=== PATIENT | female | born 1935 | race Caucasian/White ===

== ENCOUNTER 2018-07-21 01:29 | Inpatient (IN) | payer MEDICARE, MEDICAID ==
[2018-07-21] MEDS ORDERED: HYDROcodone/Acetaminophen 5/325 mg Tablet PO PRN (13:03)
[2018-07-21 13:10] VITALS: BMI 40.4
[2018-07-21] MEDS ORDERED: Cefepime 1 GM in Sodium Chloride 0.9% 100 ML IVPB SCH (14:00)
--- NOTE | 2018-07-21 15:55 | HP ---
CHIEF COMPLAINT: Sepsis, urinary tract infection. HISTORY OF PRESENT ILLNESS: The patient gives history of shaking with chills from last 2 days. She also developed fever. She thinks it is bladder infection. Had a temperature of 101.6 with blood pre ssures of 100/56 on arrival at [facility]. Her last bowel movement was 2 days back. Her last u rinary tract infection per patient was long back. She normally ambulates in a wheelchair and is a [facility] resident. No complaints of chest pain, palpitation, PND, or orthopnea. PAST MEDICAL/SURGICAL HISTORY: History of hypertension, COPD, osteoarthritis, muscle wasting with at rophy, obesity, chronic kidney disease stage 2, urinary incontinence, GERD, benign positional vertigo , cervical disk disease, dementia, carpal tunnel surgery on the right wrist, prior history of Staph i nfection in the abdomen, hysterectomy with dehiscence, appendectomy, left great toe and second toe bu nionectomy. CURRENT MEDICATIONS: The patient is on albuterol inhaler q.6 hourly p.r.n., MiraLax 17 grams daily, tizanidine 4 mg p.o. twice daily p.r.n., Norvasc 5 mg daily, clonazepam 0.5 mg p.o. twice daily, furo semide 40 mg twice daily, gabapentin 200 mg p.o. twice daily, [place] p.r.n. for pain, lisinopril 20 mg p.o. twice daily, metoprolol 50 mg p.o. twice daily, Protonix 40 mg p.o. daily, K-Dur 10 mEq p.o. tw ice daily, Zoloft 150 mg p.o. daily. ALLERGIES: No known drug allergies. PERSONAL HISTORY: Does not abuse alcohol or drugs. No history of smoking. FAMILY HISTORY: Father at the age of 73 years from old age and mother at the age of 42 yea rs and has had massive CVA. CODE STATUS: DNR. This was confirmed with the patient. She has also out of hospital DNR, but she h as signed on February 17, 2018. REVIEW OF SYSTEMS: The following complete review of systems was negative, unless otherwise mentioned in the HPI or below: Constitutional: Weight loss or gain, ability to conduct usual activities. Skin: Rash, itching. Eyes: Double vision, pain. ENT/Mouth: Nose bleeding, neck stiffness, pain, tenderness. Cardiovascular: Palpitations, dyspnea on exertion, orthopnea. Respiratory: Shortness of breath, wheezing, cough, hemoptysis, fever or night sweats. Gastrointestinal: Poor appetite, abdominal pain, heartburn, nausea, vomiting, constipation, or diarr hea. Genitourinary: Urgency, frequency, dysuria, nocturia. Musculoskeletal: Pain, swelling. Neurologic/Psychiatric: Anxiety, depression. Allergy/Immunologic: Skin rash, bleeding tendency. PHYSICAL EXAMINATION: GENERAL: The patient is an 83-year-old female who is currently not in any acute distress. VITAL SIGNS: Blood pressure 100/56, pulse 84 per minute, respiratory rate 18 per minute, temperature was 101.6 degrees at [facility] and is currently 99.9 degrees Fahrenheit, saturating 98% on 2 l iters nasal cannula. NECK: Supple, no elevated JVD. HEENT: Extraocular muscles intact. Pupils reacting to light. Oral cavity, mucous membranes are dry . No exudates or congestion. CARDIOVASCULAR: S1, S2 heard. Regular rhythm. RESPIRATORY: Air entry 1+ bilateral. No rales or rhonchi. ABDOMEN: Soft, bowel sounds heard. No tenderness, rigidity or guarding. EXTREMITIES: No peripheral edema or calf tenderness. VASCULAR SYSTEM: Peripheral pulses 1+ bilateral. No ischemic ulcerations or gangrene. CENTRAL NERVOUS SYSTEM: No gross focal deficits noted. Patient is alert, awake, oriented well. PSYCHIATRIC: The patient's mood is euthymic. No hallucinations or delusions. LABORATORY AND X-RAY FINDINGS: Chest x-ray done shows mild cardiomegaly with pulmonary vascular rayshawn estion, otherwise no acute infiltrate. Urinalysis is positive for nitrite, moderate leukocyte estera se, greater than 50 wbc's and 4+ bacteria. Serum bicarbonate is 26, BUN 21, creatinine 1.0, serum gl ucose 130. Troponin I 0.07. Lipase is 14. White count of 17, H&H 13 and 41, platelet count 232 wit h 82% neutrophils. CLINICAL IMPRESSION AND PLAN: Patient will be admitted to medical floor for sepsis with urinary trac t infection. She will be placed on cefepime and Levaquin. Gentle hydration with normal saline at 50 mL per hour. We will continue her Klonopin, Norvasc, [place], Protonix, MiraLax, and Zoloft as before . She will be on a small dose of Lopressor 25 mg twice daily. Blood and urine cultures have been ob tained and we will follow up on that. The patient likely has indeterminate troponin due to demand is chemia from sepsis and is currently asymptomatic.
[2018-07-21 17:19] LABS: Troponin I 0.037 ng/mL (< 0.028)
[2018-07-21 17:20] LABS: Troponin I 0.089 ng/mL (< 0.028)
[2018-07-21] MEDS: Sodium Chloride 0.9% 1,000 ML IV SCH ×2 (17:46→20:56)
[2018-07-21] MEDS: Cefepime 1 GM in Sodium Chloride 0.9% 100 ML IVPB SCH (20:53)
[2018-07-21] MEDS: Docusate 100 MG CAP PO SCH (20:54)
[2018-07-21] MEDS: clonazePAM 0.5 MG TAB PO SCH (20:54)
[2018-07-21] MEDS: Gabapentin 100 MG CAP PO SCH (20:55)
[2018-07-21] MEDS: Metoprolol Tartrate 25 MG TAB PO SCH (20:55)
[2018-07-21] MEDS: HYDROcodone/Acetaminophen 5/325 mg Tablet PO PRN (23:05)
[2018-07-22] MEDS: Cefepime 1 GM in Sodium Chloride 0.9% 100 ML IVPB SCH ×2 (08:31→21:01)
[2018-07-22] MEDS: Docusate 100 MG CAP PO SCH ×2 (08:33→21:02)
[2018-07-22] MEDS: Polyethylene Glycol 3350 17 GM Packet PO SCH (08:33)
[2018-07-22] MEDS: Gabapentin 100 MG CAP PO SCH ×2 (08:34→21:02)
[2018-07-22] MEDS: Metoprolol Tartrate 25 MG TAB PO SCH ×2 (08:34→21:03)
[2018-07-22] MEDS: clonazePAM 0.5 MG TAB PO SCH ×2 (08:34→21:02)
[2018-07-22] MEDS: Amlodipine 5 MG TAB PO SCH (08:35)
[2018-07-22 09:15] LABS: #Basophils 0.1 thou/uL (0.0-0.2); #Eosinphils 0.1 thou/uL (0.0-0.7); #Monocytes 0.4 thou/uL (0.11-0.59); #Neutrophils 10.1 thou/uL (1.40-6.50); %Basophils 0.6 % (0.0-1.0); %Eosinophils 0.5 % (0.0-10.0); %Lymphocytes 8.6 % (21.0-51.0); %Neutrophils 87.3 % (42.0-75.0); Hemoglobin 12.7 g/dL (12.0-16.0); Mean Corpuscular HGB CONC 31.5 g/dL (32.0-36.0); Mean Corpuscular Hemoglobin 30.2 pg (27.0-31.0); Mean Corpuscular Volume 95.9 fL (78.0-98.0); Mean Platelet Volume 7.3 fL (7.4-10.4); Platelet Count 200 thou/uL (130-400); RBC Distribution Width 12.9 % (11.5-14.5); White Blood Cell (WBC) Count 11.6 thou/uL (4.8-10.8)
[2018-07-22 09:40] LABS: Anion Gap 9 mmol/L (10-20); BUN (Urea Nitrogen) 11 mg/dL (9.8-20.1); Calc. Creatinine Clearance 110 mL/min (70-130); Calcium 8.7 mg/dL (7.8-10.44); Carbon Dioxide 31 mmol/L (23-31); Chloride 102 mmol/L (98-107); Estimated GFR-MDRD 78; Glucose 136 mg/dL (83-110); Potassium 3.9 mmol/L (3.5-5.1); Sodium 138 mmol/L (136-145)
--- NOTE | 2018-07-22 11:49 | PDOC.PN ---
- Subjective Encounter Start Date: 07/22/18 Encounter Start Time: 11:48 Says she is feeling better overall. No complaints right now. - Objective Resuscitation Status: Resuscitation Status DNR:Do Not Resuscitate Vital Signs & Weight: Vital Signs (12 hours) Temp Pulse Resp BP BP Pulse Ox 07/22/18 08:35 83 146/83 H 07/22/18 07:59 97 07/22/18 07:58 98.3 F 83 18 146/83 H 97 Weight Weight 266 lb I&O: 07/21/18 07/22/18 07/23/18 06:59 06:59 06:59 Intake Total 867 Output Total 1750 Balance -883 Result Diagrams: 07/22/18 09:03 07/22/18 09:03 Phys Exam - Physical Examination Constitutional: NAD Obese. Awake and alert. Respiratory: no wheezing, no rales, no rhonchi, clear to auscultation bilateral Cardiovascular: RRR, no significant murmur, no rub Gastrointestinal: soft, non-tender, no distention, positive bowel sounds Musculoskeletal: no edema Psychiatric: normal affect, A&O x 3 Dx/Plan (1) Sepsis Code(s): A41.9 - SEPSIS, UNSPECIFIED ORGANISM Status: Acute (2) UTI (urinary tract infection) Status: Acute (3) Asthma Code(s): J45.909 - UNSPECIFIED ASTHMA, UNCOMPLICATED Status: Chronic (4) Hypertension Code(s): I10 - ESSENTIAL (PRIMARY) HYPERTENSION Status: Chronic (5) Obesity (BMI 30-39.9) Code(s): E66.9 - OBESITY, UNSPECIFIED Status: Chronic - Plan * Urine cx is negative. Had fair amount of RBC's. Will recheck. * Continue with IV abx and follow up culture tomorrow. * Leukocytosis and fever resolved. * Continue home meds for chronic conditions which appear to be well controlled.
[2018-07-22] MEDS ORDERED: Enoxaparin Sodium 30 MG/0.3 ML SYRINGE SC SCH (12:00)
[2018-07-22 14:56] LABS: Bilirubin Negative (Negative); Blood, Urine Small (Negative); Clarity CLEAR (Clear); Glucose, Urine (Dipstick) Negative (Negative); Leukocyte Small (Negative); Nitrite Negative (Negative); Protein, Urine (Dipstick) Trace mg/dL (Neg-Trace); Specific Gravity, Urine 1.009 (1.002-1.036); pH, Urine 7.5 (5.0-9.0)
[2018-07-22 14:59] LABS: Bacteria/HPF None Seen HPF (None Seen); Hyaline Casts/LPF 0-3 HYALINE CAST LPF (0-3 Hyaline); Pathc Cast-AUWi Flag 0.87 (0-2.49)
[2018-07-22] MEDS: HYDROcodone/Acetaminophen 5/325 mg Tablet PO PRN (15:48)
[2018-07-22] MEDS: Sodium Chloride 0.9% 1,000 ML IV SCH (21:00)
[2018-07-23 05:40] LABS: #Eosinphils 0.1 thou/uL (0.0-0.7); #Lymphocytes 1.5 thou/uL (1.20-3.40); #Monocytes 0.6 thou/uL (0.11-0.59); #Neutrophils 5.3 thou/uL (1.40-6.50); %Basophils 0.2 % (0.0-1.0); %Eosinophils 1.5 % (0.0-10.0); %Lymphocytes 19.7 % (21.0-51.0); %Monocytes 7.9 % (0.0-10.0); %Neutrophils 70.7 % (42.0-75.0); Hemoglobin 12.8 g/dL (12.0-16.0); Mean Corpuscular HGB CONC 31.6 g/dL (32.0-36.0); Mean Corpuscular Hemoglobin 30.1 pg (27.0-31.0); Mean Corpuscular Volume 95.1 fL (78.0-98.0); Mean Platelet Volume 7.5 fL (7.4-10.4); Platelet Count 195 thou/uL (130-400); RBC Distribution Width 12.9 % (11.5-14.5); Red Blood Cell (RBC) Count 4.24 mill/uL (4.20-5.40); White Blood Cell (WBC) Count 7.5 thou/uL (4.8-10.8)
[2018-07-23 06:00] LABS: Anion Gap 7 mmol/L (10-20); BUN (Urea Nitrogen) 9 mg/dL (9.8-20.1); Calc. Creatinine Clearance 124 mL/min (70-130); Calcium 8.7 mg/dL (7.8-10.44); Carbon Dioxide 31 mmol/L (23-31); Chloride 104 mmol/L (98-107); Estimated GFR-MDRD 90; Glucose 95 mg/dL (83-110); Potassium 4.2 mmol/L (3.5-5.1); Sodium 138 mmol/L (136-145)
[2018-07-23] MEDS: Cefepime 1 GM in Sodium Chloride 0.9% 100 ML IVPB SCH ×2 (08:29→21:15)
[2018-07-23] MEDS: Gabapentin 100 MG CAP PO SCH ×2 (08:32→21:18)
[2018-07-23] MEDS: clonazePAM 0.5 MG TAB PO SCH ×2 (08:32→21:17)
[2018-07-23] MEDS: Docusate 100 MG CAP PO SCH ×2 (08:32→21:17)
[2018-07-23] MEDS: Amlodipine 5 MG TAB PO SCH (08:32)
[2018-07-23] MEDS: Metoprolol Tartrate 25 MG TAB PO SCH ×2 (08:32→21:18)
[2018-07-23] MEDS: Polyethylene Glycol 3350 17 GM Packet PO SCH (08:33)
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
[2018-07-23] MEDS: HYDROcodone/Acetaminophen 5/325 mg Tablet PO PRN (21:18)
[2018-07-23] MEDS: Sodium Chloride 0.9% 1,000 ML IV SCH (23:34)
[2018-07-24] MEDS: Cefepime 1 GM in Sodium Chloride 0.9% 100 ML IVPB SCH (08:51)
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
[2018-07-24] MEDS: Polyethylene Glycol 3350 17 GM Packet PO SCH (08:53)
[2018-07-24] MEDS: Docusate 100 MG CAP PO SCH (08:53)
[2018-07-24] MEDS: clonazePAM 0.5 MG TAB PO SCH (08:53)
[2018-07-24] MEDS: Gabapentin 100 MG CAP PO SCH (08:53)
[2018-07-24] MEDS: Metoprolol Tartrate 25 MG TAB PO SCH (08:55)
[2018-07-24] MEDS: Amlodipine 5 MG TAB PO SCH (08:55)
[2018-07-24 11:37] VITALS: BP 161/78; TEMP 98.6
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
== END 2018-07-24 12:28 | DRG 872 ==
LOC: ERS 01:29 → T4-B 11:23 → 2SE 11:51 → T4-B 17:39
PROVIDERS: ADMIT Hospitalist; ATTEND Hospitalist
DX: A41.9 Sepsis, unspecified organism (principal); N39.0 Urinary tract infection, site not specified; I24.8 Other forms of acute ischemic heart disease; N18.2 Chronic kidney disease, stage 2 (mild); I12.9 Hypertensive chronic kidney disease with stage 1 through stage 4 chronic kidney disease, or unspecified chronic kidney disease; J44.9 Chronic obstructive pulmonary disease, unspecified; E66.9 Obesity, unspecified; M19.90 Unspecified osteoarthritis, unspecified site; M62.50 Muscle wasting and atrophy, not elsewhere classified, unspecified site; R32 Unspecified urinary incontinence; F03.90 Unspecified dementia, unspecified severity, without behavioral disturbance, psychotic disturbance, mood disturbance, and anxiety; Z79.899 Other long term (current) drug therapy; Z79.891 Long term (current) use of opiate analgesic; B00.1 Herpesviral vesicular dermatitis; J45.909 Unspecified asthma, uncomplicated; Z68.30 Body mass index [BMI] 30.0-30.9, adult; K21.9 Gastro-esophageal reflux disease without esophagitis
CPT/HCPCS: 36415; 80048; 81003; 81015; 84484; 85025; 87040; 87086; J0692; J1650; J1956; J7050

== ENCOUNTER 2019-10-20 07:03 | Inpatient (IN) | payer MEDICARE, MEDICAID ==
[2019-10-20 08:26] LABS: Bacteria/HPF 3+ HPF (None Seen); Bilirubin Negative (Negative); Blood, Urine Trace (Negative); Clarity Extra Turbid (Clear); Glucose, Urine (Dipstick) Normal (Negative); Leukocyte 25 Leu/uL (Negative); Nitrite Negative (Negative); Protein, Urine (Dipstick) 30 mg/dL (Neg-Trace); RBC/HPF 0-3 HPF (0-3); Squamous Epithelial None Seen HPF (0-3); Urobilinogen Normal mg/dL (Less than 2); WBC/HPF 0-3 HPF (0-3)
[2019-10-20] MEDS ORDERED: Morphine 2 MG/ML SYRINGE ONE ×2 (08:37→09:41)
[2019-10-20] MEDS ORDERED: Dextrose 5% in Water 1,000 ML IV PRN (09:40)
[2019-10-20] MEDS ORDERED: Morphine 4 MG/ML VIAL SLOW IVP PRN ×2 (09:40→19:51)
[2019-10-20] MEDS ORDERED: Dextrose 50% Abboject 50 ML SYRINGE SLOW IVP PRN (09:40)
[2019-10-20] MEDS ORDERED: HumaLOG 300 UNITS/3 ML VIAL SC PRN (09:40)
[2019-10-20] MEDS ORDERED: Ondansetron PF 4 MG/2 ML Vial IVP PRN ×2 (09:40→19:51)
[2019-10-20] MEDS ORDERED: hydrALAZINE 20 MG/ML VIAL SLOW IVP PRN ×2 (09:40)
[2019-10-20] MEDS ORDERED: Ketorolac Tromethamine 30 MG/ML VIAL ONE (09:41)
[2019-10-20] MEDS ORDERED: Gabapentin 300 MG CAP PO PRN (09:42)
[2019-10-20] MEDS ORDERED: traMADol HCl 50 MG TAB PO PRN (09:42)
[2019-10-20] MEDS ORDERED: Ketorolac Tromethamine 30 MG/ML VIAL IVP PRN (09:44)
[2019-10-20] MEDS ORDERED: Rocuronium Bromide 10 MG/ML (10ML VIAL) ONE (11:57)
[2019-10-20] MEDS ORDERED: PROPOFOL 200 MG/20 ML VIAL ONE (11:57)
[2019-10-20] MEDS ORDERED: Glycopyrrolate 0.2 MG/ML 5 ML SYRINGE ONE (11:57)
[2019-10-20] MEDS ORDERED: Dexamethasone 20 MG/5 ML VIAL ONE (11:57)
[2019-10-20] MEDS ORDERED: Metoclopramide HCl 10 MG/2 ML VIAL ONE (11:57)
[2019-10-20] MEDS ORDERED: Ondansetron PF 4 MG/2 ML Vial ONE (11:57)
[2019-10-20] MEDS ORDERED: ePHEDrine/0.9% NaCl/PF SYRINGE 50 mg/10 ml ONE (11:57)
[2019-10-20] MEDS ORDERED: Lidocaine 1% PF 5 ML VIAL ONE (11:57)
[2019-10-20] MEDS: Sodium Chloride 0.9% 1,000 ML IV SCH ×2 (11:58→21:15)
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
[2019-10-20] MEDS: Acetaminophen 500 MG TAB PO SCH ×3 (13:11→21:14)
[2019-10-20 14:02] VITALS: BMI 40.6
[2019-10-20] MEDS ORDERED: Fentanyl 100 MCG/2 ML VIAL ONE (17:24)
[2019-10-20] MEDS ORDERED: Neomycin-Polymyxin 1 ML AMP ONE (18:09)
[2019-10-20] MEDS ORDERED: Lidocaine 1% w/Epinephrine 1:100K 20 ML VIAL ONE (18:43)
[2019-10-20] MEDS ORDERED: Ondansetron HCl/PF 4 MG/2 ML Vial IVP PRN (18:44)
[2019-10-20] MEDS ORDERED: PACU-Morphine 4MG/ML VIAL SLOW IVP PRN (18:44)
[2019-10-20] MEDS ORDERED: Morphine Sulfate 2 MG/ML SYRINGE SLOW IVP PRN (18:44)
[2019-10-20] MEDS ORDERED: Promethazine HCl 25 MG/ML VIAL IM PRN (18:44)
[2019-10-20] MEDS ORDERED: HYDROmorphone 2 MG/ML VIAL SLOW IVP PRN (18:44)
[2019-10-20] MEDS ORDERED: Promethazine HCl 25 MG/ML VIAL SLOW IVP PRN (18:44)
[2019-10-20] MEDS ORDERED: Morphine 2 MG/ML SYRINGE SLOW IVP PRN (19:50)
[2019-10-20] MEDS ORDERED: HYDROcodone/Acetaminophen 10/325 mg Tablet PO PRN (19:54)
--- NOTE | 2019-10-20 20:35 | OP ---
DATE OF PROCEDURE: 10/20/2019 PREOPERATIVE DIAGNOSIS: Intertrochanteric fracture of the left hip. POSTOPERATIVE DIAGNOSIS: Intertrochanteric fracture of the left hip. PROCEDURE PERFORMED: Open reduction and internal fixation of intertrochanteric fracture of the left hip using a Synthes trochanteric fixation nail. ANESTHESIA: General. DESCRIPTION OF PROCEDURE: The patient was given preoperative IV antibiotics, taken to the operating room, placed in supine position. Satisfactory general anesthesia was performed. The patient was placed on the fracture table. All bony prominences were well padded and traction was applied across a well-padded left foot and ankle. C-arm verified. Good alignment of the intertrochanteric fracture in AP, lateral, and multiple oblique views. Lateral aspect of the left hip and thigh was then sterilely prepped and draped in usual fashion. A longitudinal incision was made approximately 3 inches in length proximal to the greater trochanter and under fluoroscopic visualization, a guidewire was placed through the greater trochanter and then was over-reamed. A trochanteric fixation nail that was 12 mm in diameter and 170 mm in length was inserted into the proximal aspect of the femur through the greater trochanter across the fracture and into the intramedullary canal. Through a separate incision approximately 2 inches in length in the lateral aspect of the thigh, a fenestrated helical blade was prepared for and 100 mm blade was inserted into the femoral neck and head and then was locked into the trochanteric krystal with locking device. The 5.0 locking screw was placed distally in the nail and in the femur and C-arm again verified proper placement of the krystal and screws as well as good alignment of the intertrochanteric fracture. The wounds were then copiously irrigated with antibiotic solution. They were closed using #2 Vicryl for the deeper tissue including the iliotibial band, 0 Vicryl for the fat and subcutaneous tissue, and skin was closed with skin radha. Sterile dressing was applied. The patient was taken out of traction. She was taken off the fracture table. She was awakened, extubated, and transferred to recovery room in stable condition. ESTIMATED BLOOD LOSS: 250 mL. COMPLICATIONS: None. Job ID: [id number]
[2019-10-20] MEDS ORDERED: Metoprolol Tartrate 25 MG TAB PO SCH (21:00)
[2019-10-20] MEDS ORDERED: Lisinopril 20 MG TAB PO SCH (21:00)
[2019-10-20] MEDS ORDERED: Gabapentin 300 MG CAP PO SCH (21:00)
[2019-10-20] MEDS ORDERED: Chloraseptic Spray 180 ml Bottle PO PRN (21:12)
[2019-10-20] MEDS: Senokot S 8.6-50 MG TAB PO SCH (21:14)
[2019-10-20] MEDS: Famotidine/PF 20 mg/2ml Vial SLOW IVP SCH (21:14)
[2019-10-20] MEDS: Gabapentin 300 MG CAP PO SCH (21:14)
[2019-10-20] MEDS: Metoprolol Tartrate 50 MG TAB PO SCH (21:20)
[2019-10-20] MEDS: Lisinopril 20 MG TAB PO SCH (21:20)
[2019-10-21 01:05] LABS: #Lymphocytes 0.8 thou/uL (1.20-3.40); #Monocytes 0.3 thou/uL (0.11-0.59); #Neutrophils 12.4 thou/uL (1.40-6.50); %Basophils 0.1 % (0.0-1.0); %Eosinophils 0.1 % (0.0-10.0); %Lymphocytes 5.7 % (21.0-51.0); %Monocytes 2.3 % (0.0-10.0); %Neutrophils 91.8 % (42.0-75.0); Hemoglobin 11.6 g/dL (12.0-16.0); Mean Corpuscular HGB CONC 32.2 g/dL (32.0-36.0); Mean Corpuscular Hemoglobin 30.4 pg (27.0-31.0); Mean Corpuscular Volume 94.4 fL (78.0-98.0); Mean Platelet Volume 7.6 fL (7.4-10.4); Platelet Count 195 thou/uL (130-400); RBC Distribution Width 12.8 % (11.5-14.5); Red Blood Cell (RBC) Count 3.83 mill/uL (4.20-5.40); White Blood Cell (WBC) Count 13.5 thou/uL (4.8-10.8)
[2019-10-21 01:27] LABS: Anion Gap 12 mmol/L (10-20); BUN (Urea Nitrogen) 14 mg/dL (9.8-20.1); Calc. Creatinine Clearance 97 mL/min (70-130); Calcium 8.2 mg/dL (7.8-10.44); Carbon Dioxide 30 mmol/L (23-31); Chloride 105 mmol/L (98-107); Estimated GFR-MDRD 73; Glucose 165 mg/dL (83-110); Magnesium 1.9 mg/dL (1.6-2.6); Phosphorus 2.4 mg/dL (2.3-4.7); Potassium 3.8 mmol/L (3.5-5.1); Sodium 143 mmol/L (136-145)
[2019-10-21] MEDS: CEFAZOLIN 2 GM in Premix Bag 1 BAG IVPB SCH ×2 (01:27→09:11)
[2019-10-21] MEDS: Acetaminophen 500 MG TAB PO SCH ×4 (04:11→21:17)
[2019-10-21] MEDS: Sodium Chloride 0.9% 1,000 ML IV SCH ×2 (04:12→09:42)
[2019-10-21] MEDS ORDERED: Hydrocortisone Sod Succ/PF 100 mg/2 ml Vial IVP SCH (05:15)
--- NOTE | 2019-10-21 05:43 | PRG ---
DATE OF SERVICE: 10/21/2019 SUBJECTIVE: The patient is currently on the surgical floor. She was admitted today status post ground level fall, when she sustained a left hip fracture. She has undergone open reduction and internal fixation of same. She tolerated the procedure well, though postoperatively, other than her expected somnolence, the patient had some episodes of hypotension. After checking her cortisol level, it was noted that she was likely adrenally insufficient. She has been started on hydrocortisone. We will continue to follow this. Otherwise, the nurses did not report any issues. OBJECTIVE: VITAL SIGNS: At the time of my visit, her blood pressure systolic was in the 90s, but the nurses had reported it going into the 80s. GENERAL: The patient is asleep. With general voice stimulation, she would open her eyes and answer very simple questions. Her postop dressing is clean, dry, and intact. LUNGS: Clear to auscultation bilaterally. HEART: Regular rate and rhythm. ASSESSMENT: 1. Status post ground level fall. 2. Status post open reduction and internal fixation of left hip fracture. 3. Adrenal insufficiency. PLAN: Plan will be to continue supportive care. Again, hydrocortisone has been ordered. We will continue her fluids and monitor her urinary output. In the morning, begin physical and occupational therapy and discuss placement. The patient's postop hemoglobin was 11.6. Job ID: [id number]
[2019-10-21] MEDS ORDERED: Fluticasone Propionate [Flovent Diskus] 50 MCG INH SCH (07:00)
[2019-10-21] MEDS: Famotidine/PF 20 mg/2ml Vial SLOW IVP SCH ×2 (09:13→21:04)
[2019-10-21] MEDS: Gabapentin 300 MG CAP PO SCH ×2 (09:13→21:02)
[2019-10-21] MEDS: Metoprolol Tartrate 50 MG TAB PO SCH ×2 (09:13→21:18)
[2019-10-21] MEDS: Senokot S 8.6-50 MG TAB PO SCH ×2 (09:14→21:03)
[2019-10-21] MEDS: Polyethylene Glycol 3350 17 GM Packet PO SCH (09:14)
[2019-10-21] MEDS: Lisinopril 20 MG TAB PO SCH ×2 (09:14→21:18)
[2019-10-21] MEDS ORDERED: PROVENTIL INHALER 6.7 G (200 INHALATIONS) INH PRN (10:16)
[2019-10-21] MEDS ORDERED: HYDROcodone/Acetaminophen 10/325 mg Tablet PO PRN (10:30)
[2019-10-21] MEDS ORDERED: FLU VACC TS2019-20(65YR UP)/PF 180 MCG/0.5 ML SYRINGE IM ONE (12:30)
[2019-10-21] MEDS: Hydrocortisone Sod Succ/PF 100 mg/2 ml Vial IVP SCH ×2 (13:46→21:04)
--- NOTE | 2019-10-21 15:57 | PRG ---
DATE OF SERVICE: 10/21/2019 SUBJECTIVE: Ms. Alvarado is an 84-year-old female, status post ground level fall. She sustained left hip fracture. She underwent ORIF with left hip fracture. Postop, the patient reports doing good, pain well controlled. She is not yet working with PT/OT. She tolerated with her regular diet. Her vital signs have been stable. She developed no fever or shortness of breath. OBJECTIVE: GENERAL: Currently, the patient is lying in bed comfortable with no acute respiratory distress. VITAL SIGNS: Temperature 97.9, heart rate 75, respiratory rate 18, and O2 saturation 94% on room air, and blood pressure 139/61. LUNGS: Clear bilaterally. HEART: Regular rate and rhythm. ABDOMEN: Soft, nondistended. EXTREMITIES: Neurovascularly intact x4. Postop dressing clean, dry, intact. ASSESSMENT: 1. Status post ground level fall. 2. Left hip fracture, status post open reduction and internal fixation of left hip fracture. 3. Adrenal insufficiency, resolved. PLAN: Will be continue supportive care. Continue pain control. Continue DVT prophylaxis. The patient will need to work with PT/OT. Anticipate placement in rehabilitation facility. Job ID: [id number]
--- NOTE | 2019-10-21 18:39 | RAD ---
EXAM: XR Hip Lt 2-3 View DATE: 10/20/2019 12:00 AM INDICATION: ORIF of the left hip COMPARISON: October 20, 2019 FINDING: There is been interval placement of a cephalomedullary device fixating the patient's left h ip intertrochanteric fracture. Fracture alignment is near anatomic. The instrumentation projects in expected position. 3 fluoroscopic spot images were submitted for interpretation. Total fluoroscopic t smiley was 79.5 seconds. Total exposure was 39.64 mGy. IMPRESSION:ORIF of left hip.
--- NOTE | 2019-10-21 19:55 | PRG ---
DATE OF SERVICE: SUBJECTIVE: Ms. Alvarado underwent ORIF of intertrochanteric fracture of the left hip utilizing a trochanteric fixation nail yesterday. The patient states that she has good pain control. She was able to work with physical therapy, was able to get out of bed. OBJECTIVE: VITAL SIGNS: Latest vital signs; temperature 98.1, pulse 73, respiratory rate 16, blood pressure 114/71. LABORATORY DATA: This morning showed hemoglobin of 11.6, hematocrit 36.2. The left lower extremity is neurovascularly intact. PLAN: The patient will continue work with Physical and Occupational Therapy. The plan is to go back to alf that she lives at discharge where she will continue to receive physical and occupational therapy. The patient has some drainage on her dressing and will have the nurses change the dressing today. Job ID: [id number]
[2019-10-21] MEDS: clonazePAM 0.5 MG TAB PO SCH (21:02)
[2019-10-21] MEDS: Aspirin 81 mg Enteric Coated Tablet PO SCH (21:03)
--- NOTE | 2019-10-22 02:16 | PRG ---
DATE OF SERVICE: 10/22/2019 SUBJECTIVE: The patient is currently on the surgical floor. She is status post ground level fall, which she sustained a left hip fracture. She has undergone open reduction and internal fixation of same. She has been working with Physical and Occupational Therapy. Her pain is controlled, and she is tolerating a diet. The patient was treated for adrenal insufficiency, which appears to have resolved. Her blood pressure has improved and maintains above 100 systolic. We do continue to hold her antihypertensives. PHYSICAL EXAMINATION: VITAL SIGNS: Stable. The patient is afebrile. GENERAL: The patient is currently asleep in bed. She is appears comfortable. RESPIRATORY: Respirations appear nonlabored. ASSESSMENT: 1. Status post ground level fall. 2. Status post open reduction and internal fixation of left hip fracture. 3. Adrenal insufficiency, resolved. PLAN: Plan will be to continue supportive care. Encourage physical and occupational therapy and discuss placement. Job ID: [id number]
[2019-10-22] MEDS: Acetaminophen 325 MG TAB PO SCH ×3 (05:23→21:47)
[2019-10-22] MEDS: Hydrocortisone Sod Succ/PF 100 mg/2 ml Vial IVP SCH ×3 (05:23→21:47)
[2019-10-22] MEDS: Metoprolol Tartrate 50 MG TAB PO SCH ×2 (08:19→21:46)
[2019-10-22] MEDS: Aspirin 81 mg Enteric Coated Tablet PO SCH ×2 (08:19→21:42)
[2019-10-22] MEDS: Lisinopril 20 MG TAB PO SCH ×2 (08:20→21:42)
[2019-10-22] MEDS: Senokot S 8.6-50 MG TAB PO SCH ×2 (08:22→21:42)
[2019-10-22] MEDS: Famotidine/PF 20 mg/2ml Vial SLOW IVP SCH (08:23)
[2019-10-22] MEDS: Gabapentin 300 MG CAP PO SCH ×2 (08:23→21:42)
[2019-10-22] MEDS: clonazePAM 0.5 MG TAB PO SCH ×2 (08:23→21:42)
[2019-10-22] MEDS: Polyethylene Glycol 3350 17 GM Packet PO SCH (08:23)
[2019-10-22] MEDS ORDERED: Amlodipine 5 MG TAB PO SCH (09:00)
--- NOTE | 2019-10-22 16:06 | PRG ---
DATE OF SERVICE: 10/22/2019 SUBJECTIVE: Ms. Alvarado is an 84-year-old female, status post ground level fall, sustained left hip fracture and underwent ORIF of left hip fracture. Postop, the patient reports doing good. Pain is well controlled. She has been working with PT/OT. She tolerated with her regular diet. Urine is adequate. However, she has not yet have bowel. Vital signs are stable. OBJECTIVE: GENERAL: The patient is lying down in bed comfortable with no acute respiratory distress. VITAL SIGNS: This morning; temperature 97.6, heart rate 60, respiratory rate 18, O2 saturation 97% on 2 L, and blood pressure 144/91. LUNGS: Clear bilaterally. HEART: Regular rate and rhythm. ABDOMEN: Soft and nondistended. EXTREMITIES: Neurovascularly intact x4. Postop dressing clean, dry, and intact. NEUROLOGY: No focal neurology deficits. ASSESSMENT: 1. Status post ground level fall. 2. Left hip fracture status post open reduction and internal fixation of left hip fracture. 3. Renal insufficiency, resolved. PLAN: Continue supportive care. Continue pain control. Continue DVT prophylaxis and gastritis prophylaxis. Continue working with PT/OT. Anticipate placement in [facility] facility. Await for insurance authorization. The patient was seen and evaluated with Dr. Quesada on round this morning. Job ID: [id number]
[2019-10-22] MEDS: Mometasone Furoate 120 PUFF 220 MCG INH SCH (19:15)
--- NOTE | 2019-10-22 19:36 | PRG ---
DATE OF SERVICE: 10/22/2019 SUBJECTIVE: Ms. Alvarado is status post ORIF of intertrochanteric fracture of the left hip with a trochanteric fixation nail. The patient states that she has good pain control. She is doing well. She feels that she is ready to return back to group home, where she was at the time of the fall. OBJECTIVE: VITAL SIGNS: The patient has been afebrile, pulse 60, respiratory rate 18, and blood pressure 134/84. MUSCULOSKELETAL: The incision over the lateral aspect of the left hip and thigh is healing well. There is no erythema. No active drainage. PLAN: The patient will continue to work with Physical and Occupational Therapy. [facility], the patient is cleared for discharge tomorrow to go back to her group home. Job ID: [id number]
[2019-10-22] MEDS: Famotidine 20 MG TAB PO SCH (21:43)
--- NOTE | 2019-10-22 23:22 | PRG ---
DATE OF SERVICE: 10/22/2019 SUBJECTIVE: The patient remains on the surgical floor. She is status post open reduction and internal fixation of a left hip fracture. She has been able to work with Therapy today, albeit sitting at the edge of the bed, standing for short period of time, but she is making progress. The patient is currently waiting placement to a skilled facility. OBJECTIVE: VITAL SIGNS: Stable. The patient is afebrile. GENERAL: The patient is resting comfortably in bed. She is awake, alert, oriented, conversant, appropriate. LUNGS: Clear to auscultation bilaterally. HEART: Regular rate and rhythm. ABDOMEN: Soft, flat, nontender with active bowel sounds. EXTREMITIES: Neurovascularly intact x4. Postop dressing is clean, dry, and intact. ASSESSMENT: 1. Status post ground level fall. 2. Status post open reduction and internal fixation of left hip fracture. 3. Adrenal insufficiency, resolved. PLAN: Plan will be to continue supportive care, physical and occupational therapy and await final placement determination. Job ID: [id number]
[2019-10-23] MEDS: Acetaminophen 325 MG TAB PO SCH ×3 (05:35→23:55)
[2019-10-23] MEDS: Hydrocortisone Sod Succ/PF 100 mg/2 ml Vial IVP SCH ×3 (05:35→20:19)
[2019-10-23] MEDS: Aspirin 81 mg Enteric Coated Tablet PO SCH ×2 (09:40→20:17)
[2019-10-23] MEDS: Lisinopril 20 MG TAB PO SCH ×2 (09:40→20:23)
[2019-10-23] MEDS: Polyethylene Glycol 3350 17 GM Packet PO SCH (09:41)
[2019-10-23] MEDS: clonazePAM 0.5 MG TAB PO SCH ×2 (09:41→20:18)
[2019-10-23] MEDS: Famotidine 20 MG TAB PO SCH (09:42)
[2019-10-23] MEDS: Metoprolol Tartrate 50 MG TAB PO SCH ×2 (09:42→20:24)
[2019-10-23] MEDS: Gabapentin 300 MG CAP PO SCH ×2 (09:43→20:17)
[2019-10-23] MEDS: Amlodipine 5 MG TAB PO SCH (09:43)
[2019-10-23] MEDS: Senokot S 8.6-50 MG TAB PO SCH ×2 (09:43→20:17)
--- NOTE | 2019-10-23 11:24 | PRG ---
DATE OF SERVICE: 10/23/2019 SUBJECTIVE: Ms. Alvarado is resting comfortably this morning at the time that we evaluated her. She states that she had some significant pain with movement with physical therapy. However, when she is lying still, she is comfortable. She is postop from an open reduction and internal fixation of her left hip fracture. She is awaiting insurance approval to return back to her [facility] facility. OBJECTIVE: VITAL SIGNS: Stable. Temperature of 97.8, pulse is 67, respirations 20, O2 saturations 90% on room air, which improved on 2 L of nasal cannula oxygen, and blood pressure was 144/81. GENERAL: The patient is resting comfortably in bed. She is awake, alert, oriented. RESPIRATORY: The patient is breathing comfortably. No signs of respiratory distress. EXTREMITIES: Neurovascularly intact x4. Her dressing is clean, dry, and intact. ASSESSMENT: 1. Status post ground level fall. 2. Status post open reduction and internal fixation of left hip fracture on 10/20/2019. 3. Adrenal insufficiency, resolved. 4. History of hypertension, chronic obstructive pulmonary disease, arthritis, incontinence, and chronic kidney disease. PLAN: We will continue supportive care, physical and occupational therapy, and pain management and awaiting final placement determination pending insurance approval. The patient will need to be discharged on an increased frequency at her home dose of [place]. We will contact her primary care physician to facilitate this today. In regard to the adrenal insufficiency, we have reduced her hydrocortisone from q.8 hours to q.12 hours, and we will likely discharge without need for steroids. DISPOSITION: Stable, pending insurance approval to return to residential/ skilled care facility. The patient was seen and examined by Dr. Quesada and Dr. Elysia Hankins, PGY-1. Job ID: [id number] MTDD
[2019-10-23] MEDS: cloNIDine 0.1 MG TAB PO SCH ×3 (12:57→23:56)
[2019-10-23] MEDS: HYDROcodone/Acetaminophen 10/325 mg Tablet PO PRN ×2 (13:01→19:07)
[2019-10-23] MEDS: Mometasone Furoate 120 PUFF 220 MCG INH SCH (20:08)
--- NOTE | 2019-10-23 23:27 | PRG ---
DATE OF SERVICE: 10/23/2019 SUBJECTIVE: The patient was seen this evening during rounds, resting comfortably. The patient is postop day #3 open reduction and internal fixation left eye IT femur fracture. The patient continues to have good urinary output. OBJECTIVE: VITAL SIGNS: Stable, afebrile. GENERAL: Well-appearing elderly female, resting comfortably in bed. RESPIRATORY: Equal chest rise and fall. Respirations are even and nonlabored. ASSESSMENT: 1. Status post ground level fall. 2. Status post open reduction and internal fixation of left hip fracture. 3. Adrenal insufficiency, resolved. 4. History of hypertension, chronic obstructive pulmonary disease, arthritis, incontinence, and chronic kidney disease. PLAN: Continue supportive care. Continue physical and occupational therapy. Continue the patient's home medications with hold parameters on blood pressure medicines. The patient is ready for discharge at this time. Job ID: [id number]
[2019-10-24] MEDS: Acetaminophen 325 MG TAB PO SCH (05:02)
[2019-10-24] MEDS: cloNIDine 0.1 MG TAB PO SCH ×2 (05:05→11:21)
[2019-10-24] MEDS: Polyethylene Glycol 3350 17 GM Packet PO SCH (08:00)
[2019-10-24] MEDS: Hydrocortisone Sod Succ/PF 100 mg/2 ml Vial IVP SCH (08:00)
[2019-10-24] MEDS: Metoprolol Tartrate 50 MG TAB PO SCH (08:00)
[2019-10-24] MEDS: Aspirin 81 mg Enteric Coated Tablet PO SCH (08:00)
[2019-10-24] MEDS: Amlodipine 5 MG TAB PO SCH (08:01)
[2019-10-24] MEDS: Senokot S 8.6-50 MG TAB PO SCH (08:01)
[2019-10-24] MEDS: Gabapentin 300 MG CAP PO SCH (08:02)
[2019-10-24] MEDS: Lisinopril 20 MG TAB PO SCH (08:02)
[2019-10-24] MEDS: clonazePAM 0.5 MG TAB PO SCH (08:03)
[2019-10-24] MEDS: HYDROcodone/Acetaminophen 10/325 mg Tablet PO PRN (11:21)
[2019-10-24 11:22] VITALS: BP 144/83
[2019-10-24 11:28] VITALS: TEMP 98.7
--- NOTE | 2019-10-24 14:46 | PRG ---
DATE OF SERVICE: 10/24/2019 Ms. Sarah Alvarado was examined this morning on 10/24/2019 and was resting comfortably. She said that she had pain with movement with physical therapy. However, the pain medications were helping considerably. She is postop day 4 from an open reduction and internal fixation of her left hip fracture. The plan for her today is to discharge back to her custodial with half-way care. Her vital signs are stable. This morning, temperature 98.2, pulse of 63, respirations 20, O2 of 95 % on 2 L nasal cannula, 95% on 1 L nasal cannula, blood pressure 139/79. In general , the patient was resting comfortably. She is awake, alert, and oriented. Respiratory; she is breathing comfortably. No signs of respiratory distress. Extremities, neurovascularly intact x4 and her wound dressing was clean, dry, and intact. The patient was seen and examined by Dr. Quesada. Please see discharge summary for additional information from date of service () Job ID: [id number] MTDD
--- NOTE | 2019-10-24 14:47 | DIS ---
DATE OF ADMISSION: 10/20/2019 DATE OF DISCHARGE: 10/24/2019 ADMITTING ATTENDING: Vinnie Hartley MD DISCHARGE ATTENDING: Poli Quesada DO CONSULT: Orthopedic, Dr. Rivera. PROCEDURES: Open reduction and internal fixation of the intertrochanteric fracture of the left hip using a [employer] trochanteric fixation nail. PRIMARY DIAGNOSIS: Left intertrochanteric hip fracture. SECONDARY DIAGNOSES: 1. Hypertension. 2. Chronic obstructive pulmonary disease. 3. Arthritis. 4. Incontinence. 5. Chronic kidney disease. DISCHARGE MEDICATIONS: 1. Albuterol inhaler. 2. Amlodipine. 3. Clonazepam. 4. Famotidine. 5. Fluticasone. 6. Lasix. 7. Gabapentin. 8. Lisinopril. 9. Milk of magnesia. 10. Sertraline. 11. Tylenol. 12. Aspirin. 13. Metoprolol. 14. MiraLAX. 15. Senna. 16. For pain control, increase the patient's home dose of hydrocodone from one tab b.i.d. of 10/325 to one tab q.6 hours. 17. Clonidine 0.1 mg p.o. q.6 hours as needed for adjunct pain management control during the acute recovery phase. Hold clonidine for systolic blood pressure of less than 130 or heart rate of less than 60. Of note, this medication is not for blood pressure control, it is for adjunct pain control. Discontinued medications: None. HISTORY OF PRESENT ILLNESS AND HOSPITAL COURSE: Ms. Alvarado is an 84-year-old female, who presented to the ER via EMS from [facility] with a chief complaint of left hip pain. She fell from her bed and landed on her hip causing a left femur fracture. The patient was admitted to the surgical floor and went back for surgery on the same day of admission. Postoperatively, she tolerated physical therapy well and required routine pain management. Her laboratory studies were insignificant with a mild anemia of 11.6 hemoglobin. DISPOSITION: Stable. DISCHARGE INSTRUCTIONS: 1. Location: [facility]. 2. Diet: Regular. 3. Activity: Ad carlos. 4. Followup: Follow up with primary care physician after discharge along with cyber forensic specialist. Job ID: [id number]
== END 2019-10-24 12:53 | DRG 481 ==
LOC: ERS 07:03 → SURG B 11:28
PROVIDERS: ADMIT Specialist; ATTEND Specialist
PROC: 0QS704Z Reposition Left Upper Femur with Internal Fixation Device, Open Approach (ICD-10-PCS; principal; 2019-10-20)
DX: S72.142A Displaced intertrochanteric fracture of left femur, initial encounter for closed fracture (principal); E27.40 Unspecified adrenocortical insufficiency; J44.9 Chronic obstructive pulmonary disease, unspecified; M19.91 Primary osteoarthritis, unspecified site; I12.9 Hypertensive chronic kidney disease with stage 1 through stage 4 chronic kidney disease, or unspecified chronic kidney disease; Z90.49 Acquired absence of other specified parts of digestive tract; Z96.641 Presence of right artificial hip joint; Z87.891 Personal history of nicotine dependence; Z41.9 Encounter for procedure for purposes other than remedying health state, unspecified; Z79.899 Other long term (current) drug therapy; N18.2 Chronic kidney disease, stage 2 (mild); K21.9 Gastro-esophageal reflux disease without esophagitis; R32 Unspecified urinary incontinence; W06.XXXA Fall from bed, initial encounter; Y92.122 Bedroom in nursing home as the place of occurrence of the external cause
CPT/HCPCS: 36415; 76000; 80048; 81003; 81015; 82533; 83735; 84100; 85025; 96374; 96375; 96376; C1713; J0690; J1100; J1720; J1885; J2001; J2270; J2405; J2704; J2765; J3010; S0028

== ENCOUNTER 2021-01-21 13:00 | Observation (INO) | payer MEDICARE, MEDICAID ==
[2021-01-21] MEDS ORDERED: Albuterol 200 PUFF (6.7GM INHALER) INH PRN (17:56)
[2021-01-21] MEDS ORDERED: Ondansetron PF 4 MG/2 ML Vial IVP PRN (17:58)
[2021-01-21] MEDS ORDERED: Mometasone Furoate 120 PUFF 220 MCG INH SCH (18:30)
[2021-01-21 19:37] VITALS: BMI 33.7
[2021-01-21] MEDS: cloNIDine 0.1 MG TAB PO SCH (20:00)
[2021-01-21] MEDS: Acetaminophen 325 MG TAB PO SCH (20:50)
[2021-01-21] MEDS: Lisinopril 20 MG TAB PO SCH (20:51)
[2021-01-21] MEDS: Aspirin 81 mg Enteric Coated Tablet PO SCH (20:52)
[2021-01-21] MEDS: Gabapentin 100 MG CAP PO SCH (20:52)
[2021-01-21] MEDS: Famotidine 20 MG TAB PO SCH (20:52)
[2021-01-21] MEDS: clonazePAM 0.5 MG TAB PO SCH (20:52)
[2021-01-21] MEDS: Metoprolol Tartrate 50 MG TAB PO SCH (20:57)
[2021-01-22] MEDS: cloNIDine 0.1 MG TAB PO SCH ×3 (00:45→13:24)
[2021-01-22] MEDS: Acetaminophen 325 MG TAB PO SCH (05:21)
[2021-01-22 07:50] LABS: #Eosinphils 0.2 thou/uL (0.0-0.7); #Lymphocytes 1.3 thou/uL (1.20-3.40); #Monocytes 0.4 thou/uL (0.11-0.59); #Neutrophils 4.1 thou/uL (1.40-6.50); %Basophils 0.1 % (0.0-1.0); %Eosinophils 2.8 % (0.0-10.0); %Lymphocytes 21.4 % (21.0-51.0); %Monocytes 6.5 % (0.0-10.0); %Neutrophils 69.2 % (42.0-75.0); Mean Corpuscular HGB CONC 33.5 g/dL (32.0-36.0); Mean Corpuscular Hemoglobin 31.8 pg (27.0-31.0); Mean Corpuscular Volume 94.8 fL (78.0-98.0); Mean Platelet Volume 5.8 fL (7.4-10.4); Platelet Count 192 thou/uL (130-400); Red Blood Cell (RBC) Count 4.41 mill/uL (4.20-5.40); White Blood Cell (WBC) Count 5.9 thou/uL (4.8-10.8)
[2021-01-22 08:21] LABS: ALT (SGPT) 12 U/L (8-55); AST (SGOT) 16 U/L (5-34); Albumin 3.8 g/dL (3.4-4.8); Alkaline Phosphatase 61 U/L (40-110); Anion Gap 10 mmol/L (10-20); BUN (Urea Nitrogen) 14 mg/dL (9.8-20.1); Bilirubin, Total 0.4 mg/dL (0.2-1.2); Calc. Creatinine Clearance 92 mL/min (70-130); Calcium 9.3 mg/dL (7.8-10.44); Carbon Dioxide 32 mmol/L (23-31); Chloride 104 mmol/L (98-107); Globulin 2.5 g/dL (2.4-3.5); Glucose 90 mg/dL (83-110); Potassium 3.9 mmol/L (3.5-5.1); Protein, Total 6.3 g/dL (5.8-8.1); Sodium 142 mmol/L (136-145)
[2021-01-22] MEDS ORDERED: Amlodipine 5 MG TAB PO SCH (09:00)
[2021-01-22] MEDS ORDERED: Enoxaparin Sodium 40 MG/0.4 ML SYRINGE SC SCH (09:00)
[2021-01-22] MEDS: Aspirin 81 mg Enteric Coated Tablet PO SCH (09:13)
[2021-01-22] MEDS: Metoprolol Tartrate 50 MG TAB PO SCH (09:13)
[2021-01-22] MEDS: Famotidine 20 MG TAB PO SCH (09:13)
[2021-01-22] MEDS: Lisinopril 20 MG TAB PO SCH (09:14)
[2021-01-22] MEDS: Gabapentin 100 MG CAP PO SCH (09:15)
[2021-01-22] MEDS: clonazePAM 0.5 MG TAB PO SCH (09:15)
[2021-01-22 10:08] LABS: SARS-CoV-2 PCR by NAA Not Detected (NotDetected)
[2021-01-22 13:24] VITALS: BP 136/78
[2021-01-22 15:01] VITALS: TEMP 97.8
== END 2021-01-22 14:11 ==
LOC: ERS 13:00 → T4-B 17:43
PROVIDERS: ADMIT Internal Medicine; ATTEND Internal Medicine
DX: K63.89 Other specified diseases of intestine (principal); K57.30 Diverticulosis of large intestine without perforation or abscess without bleeding; J44.9 Chronic obstructive pulmonary disease, unspecified; I12.9 Hypertensive chronic kidney disease with stage 1 through stage 4 chronic kidney disease, or unspecified chronic kidney disease; N18.2 Chronic kidney disease, stage 2 (mild); K21.9 Gastro-esophageal reflux disease without esophagitis; E78.5 Hyperlipidemia, unspecified; F03.90 Unspecified dementia, unspecified severity, without behavioral disturbance, psychotic disturbance, mood disturbance, and anxiety; E66.9 Obesity, unspecified; Z68.33 Body mass index [BMI] 33.0-33.9, adult; Z87.891 Personal history of nicotine dependence; Z79.82 Long term (current) use of aspirin; Z79.899 Other long term (current) drug therapy; Z20.822 Contact with and (suspected) exposure to COVID-19
CPT/HCPCS: 80053; 85025; 96372; 99284; G0378 ×3; U0003; U0005; 87635; J1650

== ENCOUNTER 2022-07-17 20:38 | Inpatient (IN) | payer MEDICARE, MEDICAID ==
[2022-07-17 21:14] LABS: #Eosinphils 0.2 thou/uL (0.0-0.7); #Lymphocytes 1.6 thou/uL (1.20-3.40); #Monocytes 0.5 thou/uL (0.11-0.59); #Neutrophils 5.9 thou/uL (1.40-6.50); %Basophils 0.1 % (0.0-1.0); %Eosinophils 2.1 % (0.0-10.0); %Lymphocytes 19.7 % (21.0-51.0); %Neutrophils 72.2 % (42.0-75.0); Hemoglobin 13.3 g/dL (12.0-16.0); Mean Corpuscular HGB CONC 31.7 g/dL (32.0-36.0); Mean Corpuscular Hemoglobin 31.3 pg (27.0-31.0); Mean Corpuscular Volume 98.7 fL (78.0-98.0); Mean Platelet Volume 7.6 fL (7.4-10.4); Platelet Count 187 thou/uL (130-400); RBC Distribution Width 13.5 % (11.5-14.5); Red Blood Cell (RBC) Count 4.26 mill/uL (4.20-5.40); White Blood Cell (WBC) Count 8.2 thou/uL (4.8-10.8)
[2022-07-17 23:00] LABS: ALT (SGPT) 10 U/L (8-55); AST (SGOT) 17 U/L (5-34); Alkaline Phosphatase 78 U/L (40-110); Anion Gap 16 mmol/L (10-20); BUN (Urea Nitrogen) 19 mg/dL (9.8-20.1); Bilirubin, Total 0.6 mg/dL (0.2-1.2); Calc. Creatinine Clearance 0 mL/min (70-130); Carbon Dioxide 24 mmol/L (23-31); Chloride 108 mmol/L (98-107); Estimated GFR 71; Globulin 2.9 g/dL (2.4-3.5); Glucose 108 mg/dL (83-110); Protein, Total 6.9 g/dL (5.8-8.1); Sodium 144 mmol/L (136-145)
[2022-07-17] MEDS ORDERED: Furosemide 20 MG/2 ML VIAL ONE (23:15)
[2022-07-17] MEDS ORDERED: Aspirin Chewable 81 MG TAB ONE (23:15)
[2022-07-17] MEDS ORDERED: Acetaminophen 325 MG TAB PO PRN (23:46)
[2022-07-17] MEDS ORDERED: Senokot S 8.6-50 MG TAB PO PRN (23:46)
[2022-07-17] MEDS ORDERED: Calcium Carbonate 500 MG ChewTAB PO PRN (23:46)
[2022-07-17] MEDS ORDERED: Ondansetron PF 4 MG/2 ML Vial IVP PRN (23:46)
[2022-07-17] MEDS ORDERED: clonazePAM 0.5 MG TAB PO PRN (23:48)
[2022-07-17] MEDS ORDERED: HYDROcodone/Acetaminophen 10/325 mg Tablet PO PRN (23:48)
[2022-07-18] MEDS: Furosemide 20 MG/2 ML VIAL SLOW IVP SCH ×2 (01:44→21:36)
[2022-07-18 02:47] LABS: SARS-CoV-2 NAA Rapid Test Not Detected (NotDetected)
[2022-07-18 04:30] LABS: #Eosinphils 0.1 thou/uL (0.0-0.7); #Lymphocytes 1.5 thou/uL (1.20-3.40); #Monocytes 0.5 thou/uL (0.11-0.59); #Neutrophils 4.8 thou/uL (1.40-6.50); %Basophils 0.4 % (0.0-1.0); %Eosinophils 1.9 % (0.0-10.0); %Lymphocytes 21.5 % (21.0-51.0); %Monocytes 6.8 % (0.0-10.0); %Neutrophils 69.4 % (42.0-75.0); Hemoglobin 13.6 g/dL (12.0-16.0); Mean Corpuscular HGB CONC 31.3 g/dL (32.0-36.0); Mean Corpuscular Hemoglobin 30.8 pg (27.0-31.0); Mean Corpuscular Volume 98.3 fL (78.0-98.0); Mean Platelet Volume 7.5 fL (7.4-10.4); Platelet Count 180 thou/uL (130-400); RBC Distribution Width 13.4 % (11.5-14.5); Red Blood Cell (RBC) Count 4.41 mill/uL (4.20-5.40); White Blood Cell (WBC) Count 6.9 thou/uL (4.8-10.8)
[2022-07-18] MEDS ORDERED: Furosemide 40 MG/4 ML VIAL ONE (07:59)
[2022-07-18] MEDS: Furosemide 40 MG/4 ML VIAL SLOW IVP SCH ×2 (08:08→17:49)
[2022-07-18 08:44] LABS: ALT (SGPT) 12 U/L (8-55); AST (SGOT) 17 U/L (5-34); Alkaline Phosphatase 76 U/L (40-110); Anion Gap 13 mmol/L (10-20); BUN (Urea Nitrogen) 14 mg/dL (9.8-20.1); Bilirubin, Total 0.7 mg/dL (0.2-1.2); Calc. Creatinine Clearance 106 mL/min (70-130); Calcium 8.8 mg/dL (7.8-10.44); Carbon Dioxide 25 mmol/L (23-31); Chloride 106 mmol/L (98-107); Estimated GFR 85; Globulin 2.7 g/dL (2.4-3.5); Glucose 105 mg/dL (83-110); Protein, Total 6.7 g/dL (5.8-8.1); Sodium 140 mmol/L (136-145)
[2022-07-18] MEDS ORDERED: Amlodipine 5 MG TAB PO SCH (09:00)
[2022-07-18] MEDS ORDERED: Gabapentin 300 MG CAP PO SCH (09:00)
[2022-07-18] MEDS ORDERED: Benzonatate 100 MG CAP PO PRN (09:19)
[2022-07-18] MEDS ORDERED: Moisturizing Cream (Eucerin) 113 GM JAR TOP PRN (09:19)
[2022-07-18] MEDS ORDERED: Artificial Tear Sol 15 ML BOT EA EYE PRN (09:19)
[2022-07-18] MEDS ORDERED: Loratadine 10 MG TAB PO PRN (09:19)
[2022-07-18] MEDS ORDERED: Cepastat Lozenges 1 LOZ PO PRN (09:19)
[2022-07-18] MEDS ORDERED: Sodium Chloride 0.65% Nasal 44 ML BOT EA NARE PRN (09:19)
[2022-07-18] MEDS ORDERED: diphenhydrAMINE 25 MG CAP PO PRN (09:19)
[2022-07-18] MEDS ORDERED: hydrALAZINE 20 MG/ML VIAL SLOW IVP PRN (09:19)
[2022-07-18] MEDS ORDERED: Labetalol HCl 100 MG/20 ML VIAL SLOW IVP PRN (09:19)
[2022-07-18] MEDS ORDERED: Famotidine 20 MG TAB ONE (10:13)
[2022-07-18] MEDS ORDERED: Enoxaparin Sodium 40 MG/0.4 ML SYRINGE ONE (10:13)
[2022-07-18] MEDS ORDERED: Aspirin Chewable 81 MG TAB ONE (10:13)
[2022-07-18] MEDS ORDERED: Lisinopril 10 MG TAB ONE (10:14)
[2022-07-18] MEDS ORDERED: Metoprolol Tartrate 50 MG TAB ONE (10:15)
[2022-07-18] MEDS ORDERED: Gabapentin 100 MG CAP PO SCH (10:30)
[2022-07-18] MEDS: Lisinopril 20 MG TAB PO SCH ×2 (10:38→20:53)
[2022-07-18] MEDS: Aspirin 81 mg Enteric Coated Tablet PO SCH ×2 (10:38→20:52)
[2022-07-18] MEDS: Famotidine 20 MG TAB PO SCH ×2 (10:38→20:53)
[2022-07-18] MEDS: Enoxaparin Sodium 40 MG/0.4 ML SYRINGE SC SCH (10:38)
[2022-07-18] MEDS: Metoprolol Tartrate 50 MG TAB PO SCH ×2 (10:39→20:53)
[2022-07-18] MEDS: Mometasone Furoate 120 PUFF 220 MCG INH SCH (19:12)
[2022-07-18] MEDS: Gabapentin 100 MG CAP PO SCH (20:53)
[2022-07-19] MEDS: Furosemide 40 MG/4 ML VIAL SLOW IVP SCH ×2 (06:01→14:47)
[2022-07-19] MEDS: Gabapentin 100 MG CAP PO SCH ×2 (09:35→20:38)
[2022-07-19] MEDS: Metoprolol Tartrate 50 MG TAB PO SCH ×2 (09:35→20:38)
[2022-07-19] MEDS: Enoxaparin Sodium 40 MG/0.4 ML SYRINGE SC SCH (09:35)
[2022-07-19] MEDS: Famotidine 20 MG TAB PO SCH ×2 (09:35→20:37)
[2022-07-19] MEDS: Lisinopril 20 MG TAB PO SCH ×2 (09:35→20:38)
[2022-07-19] MEDS: Aspirin 81 mg Enteric Coated Tablet PO SCH ×2 (09:35→20:37)
[2022-07-19 14:18] VITALS: BMI 40.1
[2022-07-19] MEDS: Mometasone Furoate 120 PUFF 220 MCG INH SCH (18:45)
[2022-07-19] MEDS: Apixaban 5 MG TAB PO SCH (20:36)
[2022-07-19] MEDS: busPIRone HCl 10 MG TAB PO SCH (20:37)
[2022-07-19] MEDS ORDERED: Aripiprazole 2 MG TAB PO SCH (21:00)
[2022-07-20] MEDS: Furosemide 40 MG/4 ML VIAL SLOW IVP SCH (06:13)
[2022-07-20] MEDS: Aspirin 81 mg Enteric Coated Tablet PO SCH (10:10)
[2022-07-20] MEDS: Lisinopril 20 MG TAB PO SCH (10:10)
[2022-07-20] MEDS: busPIRone HCl 10 MG TAB PO SCH (10:10)
[2022-07-20] MEDS: Apixaban 5 MG TAB PO SCH (10:10)
[2022-07-20] MEDS: Famotidine 20 MG TAB PO SCH (10:11)
[2022-07-20] MEDS: Metoprolol Tartrate 50 MG TAB PO SCH (10:11)
[2022-07-20] MEDS: Gabapentin 100 MG CAP PO SCH (10:11)
[2022-07-20 11:51] VITALS: TEMP 98.3
[2022-07-20 12:00] VITALS: BP 129/60
== END 2022-07-20 15:50 | DRG 189 ==
LOC: ERS 20:38 → ERHOLD 23:49 → OBSVTOIN 23:49 → 2NO 07-18 16:31
PROVIDERS: ADMIT Family Medicine; ATTEND Family Medicine
DX: J96.01 Acute respiratory failure with hypoxia (principal); J81.1 Chronic pulmonary edema; J90 Pleural effusion, not elsewhere classified; Z68.41 Body mass index [BMI] 40.0-44.9, adult; Z66 Do not resuscitate; F41.9 Anxiety disorder, unspecified; F32.A Depression, unspecified; E11.9 Type 2 diabetes mellitus without complications; M81.0 Age-related osteoporosis without current pathological fracture; I48.0 Paroxysmal atrial fibrillation; J44.9 Chronic obstructive pulmonary disease, unspecified; G89.29 Other chronic pain; N18.2 Chronic kidney disease, stage 2 (mild); H40.9 Unspecified glaucoma; I11.0 Hypertensive heart disease with heart failure; I27.20 Pulmonary hypertension, unspecified; E66.9 Obesity, unspecified; M19.90 Unspecified osteoarthritis, unspecified site; K21.9 Gastro-esophageal reflux disease without esophagitis; F03.90 Unspecified dementia, unspecified severity, without behavioral disturbance, psychotic disturbance, mood disturbance, and anxiety; Z90.710 Acquired absence of both cervix and uterus; Z90.49 Acquired absence of other specified parts of digestive tract; Z98.890 Other specified postprocedural states; Z87.891 Personal history of nicotine dependence; Z79.82 Long term (current) use of aspirin; Z79.1 Long term (current) use of non-steroidal anti-inflammatories (NSAID); Z79.899 Other long term (current) drug therapy; Z79.51 Long term (current) use of inhaled steroids; Z91.81 History of falling
CPT/HCPCS: 36415; 71045; 80053; 83735; 83880; 84484; 85025; 93005; 93306; 96374; 97139; J1650; J1940; U0002

== ENCOUNTER 2022-10-22 19:39 | Inpatient (IN) | payer MEDICARE, MEDICAID ==
[2022-10-22] MEDS ORDERED: cefTRIAXone\\ROCEPHIN 1 GM VIAL ONE (20:44)
[2022-10-22 21:17] LABS: #Eosinphils 0.2 thou/uL (0.0-0.7); #Lymphocytes 1.4 thou/uL (1.20-3.40); #Monocytes 0.5 thou/uL (0.11-0.59); #Neutrophils 10.4 thou/uL (1.40-6.50); %Eosinophils 1.3 % (0.0-10.0); %Lymphocytes 10.9 % (21.0-51.0); %Monocytes 4.3 % (0.0-10.0); %Neutrophils 83.5 % (42.0-75.0); Hemoglobin 12.6 g/dL (12.0-16.0); Mean Corpuscular HGB CONC 32.7 g/dL (32.0-36.0); Mean Corpuscular Hemoglobin 31.2 pg (27.0-31.0); Mean Corpuscular Volume 95.6 fl (78.0-98.0); Mean Platelet Volume 8.1 fL (7.4-10.4); Platelet Count 217 10x3/uL (130-400); RBC Distribution Width 13.4 % (11.5-14.5); Red Blood Cell (RBC) Count 4.03 mill/uL (4.20-5.40); White Blood Cell (WBC) Count 12.4 10x3/uL (4.8-10.8)
[2022-10-22 21:31] LABS: INR-International Normal Ratio 1.5; PTT 30.3 sec (22.9-36.1); Prothrombin Time 18.5 sec (12.0-14.7)
[2022-10-22 21:39] LABS: ALT (SGPT) Less than 7 U/L (8-55); AST (SGOT) 17 U/L (5-34); Albumin 3.8 g/dL (3.4-4.8); Alkaline Phosphatase 64 U/L (40-110); Anion Gap 17 mmol/L (10-20); BUN (Urea Nitrogen) 16 mg/dL (9.8-20.1); Bilirubin, Total 0.7 mg/dL (0.2-1.2); Calc. Creatinine Clearance 0 mL/min (70-130); Calcium 8.5 mg/dL (7.8-10.44); Carbon Dioxide 25 mmol/L (23-31); Chloride 104 mmol/L (98-107); Estimated GFR 68; Globulin 2.3 g/dL (2.4-3.5); Glucose 158 mg/dL (83-110); Potassium 4.1 mmol/L (3.5-5.1); Protein, Total 6.1 g/dL (5.8-8.1); Sodium 142 mmol/L (136-145)
[2022-10-22] MEDS ORDERED: Ipratropium/Albuterol 3 ML NEB NEB PRN (21:41)
[2022-10-22] MEDS ORDERED: Dextrose 50% Abboject 50 ML SYRINGE SLOW IVP PRN (21:41)
[2022-10-22] MEDS ORDERED: Ondansetron PF 4 MG/2 ML Vial IVP PRN (21:41)
[2022-10-22] MEDS ORDERED: Ondansetron ODT 4 MG TAB PO PRN (21:41)
[2022-10-22] MEDS ORDERED: Dextrose 5% in Water 1,000 ML IV PRN (21:41)
[2022-10-22] MEDS ORDERED: TETANUS, DIPHTHERIA TOX,ADULT (TDVAX) 0.5 ML VIAL IM ONE (21:41)
[2022-10-22] MEDS ORDERED: Morphine 4 MG/ML VIAL SLOW IVP PRN ×2 (21:41)
[2022-10-22] MEDS ORDERED: hydrALAZINE 20 MG/ML VIAL SLOW IVP PRN ×2 (21:41→21:47)
[2022-10-22] MEDS ORDERED: traMADol HCl 50 MG TAB PO PRN (21:47)
[2022-10-22] MEDS ORDERED: Cyclobenzaprine 10 MG TAB PO PRN (21:47)
[2022-10-22] MEDS ORDERED: Vancomycin 1 GM/200 ML (FROZEN) BAG ONE (22:20)
[2022-10-22 22:21] LABS: Bacteria/HPF None Seen HPF (None Seen); Bilirubin Negative (Negative); Blood, Urine 1+ (Negative); Calcium Oxalate Crystals Rare HPF (None Seen); Clarity Clear (Clear); Glucose, Urine (Dipstick) Normal (Negative); Ketone, Urine Negative (Negative); Leukocyte Negative Leu/uL (Negative); Nitrite Negative (Negative); Protein, Urine (Dipstick) 30 mg/dL (Neg-Trace); RBC/HPF 0-3 HPF (0-3); Specific Gravity, Urine 1.018 (1.002-1.036); Squamous Epithelial 0-3 HPF (0-3); Urobilinogen Normal mg/dL (Less than 2); WBC/HPF 0-3 HPF (0-3); pH, Urine 5.5 (5.0-9.0)
[2022-10-22] MEDS ORDERED: Lidocaine 1% MPF 2 ML VIAL ONE (22:32)
[2022-10-22] MEDS ORDERED: Hydrocortisone Sod Succ/PF 100 mg/2 ml Vial ONE (23:46)
[2022-10-23 01:42] VITALS: BMI 36.1
[2022-10-23] MEDS: traMADol HCl 50 MG TAB PO SCH ×5 (02:38→18:17)
[2022-10-23 04:01] LABS: SARS-CoV-2 NAA Rapid Test Not Detected (NotDetected)
[2022-10-23] MEDS: Gabapentin 100 MG CAP PO SCH ×4 (04:19→20:21)
[2022-10-23] MEDS: Acetaminophen 500 MG TAB PO SCH ×4 (04:21→18:16)
[2022-10-23 04:49] LABS: #Lymphocytes 0.9 thou/uL (1.20-3.40); #Monocytes 0.5 thou/uL (0.11-0.59); #Neutrophils 10.5 thou/uL (1.40-6.50); %Lymphocytes 7.3 % (21.0-51.0); %Monocytes 3.8 % (0.0-10.0); %Neutrophils 88.9 % (42.0-75.0); Hemoglobin 8.2 g/dL (12.0-16.0); Mean Corpuscular HGB CONC 32.8 g/dL (32.0-36.0); Mean Corpuscular Hemoglobin 31.6 pg (27.0-31.0); Mean Corpuscular Volume 96.1 fl (78.0-98.0); Mean Platelet Volume 7.7 fL (7.4-10.4); Platelet Count 156 10x3/uL (130-400); RBC Distribution Width 13.4 % (11.5-14.5); Red Blood Cell (RBC) Count 2.59 mill/uL (4.20-5.40); White Blood Cell (WBC) Count 11.8 10x3/uL (4.8-10.8)
[2022-10-23 04:53] LABS: Phosphorus 3.2 mg/dL (2.3-4.7)
[2022-10-23 04:54] LABS: Anion Gap 11 mmol/L (10-20); BUN (Urea Nitrogen) 17 mg/dL (9.8-20.1); Calc. Creatinine Clearance 86 mL/min (70-130); Calcium 7.9 mg/dL (7.8-10.44); Carbon Dioxide 29 mmol/L (23-31); Chloride 106 mmol/L (98-107); Estimated GFR 75; Glucose 144 mg/dL (83-110); Magnesium 1.9 mg/dL (1.6-2.6); Potassium 3.8 mmol/L (3.5-5.1); Sodium 142 mmol/L (136-145)
[2022-10-23] MEDS ORDERED: HUM PROTHROMBIN CPLX IV SCH (07:45)
[2022-10-23] MEDS ORDERED: HUMAN PROTHROMBIN COMPLX IV SCH (07:45)
[2022-10-23] MEDS ORDERED: [UNRECOGNIZED DRUG - OTHER] IV SCH (07:45)
[2022-10-23] MEDS: Polyethylene Glycol 3350 17 GM Packet PO SCH (08:59)
[2022-10-23] MEDS: Senokot S 8.6-50 MG TAB PO SCH ×2 (08:59→20:21)
[2022-10-23] MEDS: Famotidine 20 MG TAB PO SCH (08:59)
[2022-10-23] MEDS ORDERED: Famotidine 20 MG TAB PO SCH (09:00)
[2022-10-23] MEDS ORDERED: Potassium Phosphate 15 MMOL in Sodium Chloride 0.9% 250 ML 250 ML IVPB SCH (09:30)
[2022-10-23 13:22] LABS: #Lymphocytes 2.1 thou/uL (1.20-3.40); #Monocytes 0.9 thou/uL (0.11-0.59); #Neutrophils 6.8 thou/uL (1.40-6.50); %Eosinophils 0.3 % (0.0-10.0); %Lymphocytes 20.8 % (21.0-51.0); %Monocytes 9.5 % (0.0-10.0); %Neutrophils 69.4 % (42.0-75.0); Hemoglobin 8.5 g/dL (12.0-16.0); Mean Corpuscular HGB CONC 33.2 g/dL (32.0-36.0); Mean Corpuscular Hemoglobin 31.4 pg (27.0-31.0); Mean Corpuscular Volume 94.6 fl (78.0-98.0); Mean Platelet Volume 7.8 fL (7.4-10.4); Platelet Count 154 10x3/uL (130-400); Red Blood Cell (RBC) Count 2.71 mill/uL (4.20-5.40); White Blood Cell (WBC) Count 9.8 10x3/uL (4.8-10.8)
[2022-10-23 13:33] LABS: Lactic Acid 1.9 mmol/L (0.5-2.2)
[2022-10-23 13:41] LABS: Anion Gap 14 mmol/L (10-20); BUN (Urea Nitrogen) 21 mg/dL (9.8-20.1); Calc. Creatinine Clearance 68 mL/min (70-130); Calcium 7.9 mg/dL (7.8-10.44); Carbon Dioxide 27 mmol/L (23-31); Chloride 104 mmol/L (98-107); Estimated GFR 57; Glucose 96 mg/dL (83-110); Potassium 3.8 mmol/L (3.5-5.1); Sodium 141 mmol/L (136-145)
[2022-10-23] MEDS: Fentanyl 100 MCG/2 ML VIAL SLOW IVP PRN (14:05)
[2022-10-23] MEDS: Aripiprazole 2 MG TAB PO SCH (20:20)
[2022-10-23] MEDS ORDERED: Sodium Chloride 0.9% 1,000 ML IV SCH (23:55)
[2022-10-24] MEDS: Acetaminophen 500 MG TAB PO SCH ×5 (00:13→23:58)
[2022-10-24] MEDS: traMADol HCl 50 MG TAB PO SCH ×4 (00:14→17:32)
[2022-10-24 05:10] LABS: Anion Gap 11 mmol/L (10-20); BUN (Urea Nitrogen) 23 mg/dL (9.8-20.1); CK (CPK) 121 U/L (29-168); Calc. Creatinine Clearance 62 mL/min (70-130); Calcium 7.9 mg/dL (7.8-10.44); Carbon Dioxide 29 mmol/L (23-31); Chloride 106 mmol/L (98-107); Estimated GFR 51; Glucose 95 mg/dL (83-110); Phosphorus 4.3 mg/dL (2.3-4.7); Potassium 3.4 mmol/L (3.5-5.1); Sodium 143 mmol/L (136-145)
[2022-10-24] MEDS: Gabapentin 100 MG CAP PO SCH ×3 (05:20→20:42)
[2022-10-24 06:22] LABS: #Eosinphils 0.3 thou/uL (0.0-0.7); #Lymphocytes 1.6 thou/uL (1.20-3.40); #Monocytes 0.5 thou/uL (0.11-0.59); #Neutrophils 4.1 thou/uL (1.40-6.50); %Basophils 0.2 % (0.0-1.0); %Lymphocytes 24.5 % (21.0-51.0); %Monocytes 8.3 % (0.0-10.0); %Neutrophils 63.1 % (42.0-75.0); Hemoglobin 7.9 g/dL (12.0-16.0); Mean Corpuscular HGB CONC 33.6 g/dL (32.0-36.0); Mean Corpuscular Hemoglobin 31.7 pg (27.0-31.0); Mean Corpuscular Volume 94.3 fl (78.0-98.0); Mean Platelet Volume 7.7 fL (7.4-10.4); Platelet Count 117 10x3/uL (130-400); Platelet Morphology Comment Appears Decreased; RBC Distribution Width 14.4 % (11.5-14.5); Red Blood Cell (RBC) Count 2.48 mill/uL (4.20-5.40); White Blood Cell (WBC) Count 6.5 10x3/uL (4.8-10.8)
[2022-10-24] MEDS ORDERED: Potassium Chloride 40 MEQ in Premix Bag 1 BAG IVPB SCH (07:45)
[2022-10-24] MEDS: Famotidine 20 MG TAB PO SCH (08:31)
[2022-10-24] MEDS: busPIRone HCl 10 MG TAB PO SCH ×3 (08:31→20:41)
[2022-10-24] MEDS: Senokot S 8.6-50 MG TAB PO SCH ×2 (08:31→20:42)
[2022-10-24] MEDS: Sertraline 100 MG TAB PO SCH (08:31)
[2022-10-24] MEDS: Polyethylene Glycol 3350 17 GM Packet PO SCH (08:32)
[2022-10-24] MEDS: Fentanyl 100 MCG/2 ML VIAL SLOW IVP PRN (15:01)
[2022-10-24] MEDS: Ferrous Sulfate 325 MG TAB PO SCH (17:31)
[2022-10-24] MEDS: Ascorbic Acid 500 mg Chewable Tablet PO SCH (20:41)
[2022-10-24] MEDS: Aripiprazole 2 MG TAB PO SCH (20:42)
[2022-10-25 04:42] LABS: #Eosinphils 0.4 thou/uL (0.0-0.7); #Lymphocytes 1.3 thou/uL (1.20-3.40); #Monocytes 0.4 thou/uL (0.11-0.59); #Neutrophils 4.1 thou/uL (1.40-6.50); %Basophils 0.1 % (0.0-1.0); %Eosinophils 6.3 % (0.0-10.0); %Lymphocytes 21.4 % (21.0-51.0); %Monocytes 6.7 % (0.0-10.0); %Neutrophils 65.5 % (42.0-75.0); Hemoglobin 8.5 g/dL (12.0-16.0); Mean Corpuscular HGB CONC 33.5 g/dL (32.0-36.0); Mean Corpuscular Hemoglobin 31.8 pg (27.0-31.0); Mean Platelet Volume 7.8 fL (7.4-10.4); Platelet Count 104 10x3/uL (130-400); RBC Distribution Width 14.4 % (11.5-14.5); Red Blood Cell (RBC) Count 2.68 mill/uL (4.20-5.40); White Blood Cell (WBC) Count 6.2 10x3/uL (4.8-10.8)
[2022-10-25 04:51] LABS: INR-International Normal Ratio 1.2; PTT 37.9 sec (22.9-36.1); Prothrombin Time 15.6 sec (12.0-14.7)
[2022-10-25 05:22] LABS: Anion Gap 9 mmol/L (10-20); BUN (Urea Nitrogen) 18 mg/dL (9.8-20.1); Calc. Creatinine Clearance 85 mL/min (70-130); Calcium 8.2 mg/dL (7.8-10.44); Carbon Dioxide 29 mmol/L (23-31); Chloride 108 mmol/L (98-107); Estimated GFR 73; Glucose 94 mg/dL (83-110); Magnesium 2.1 mg/dL (1.6-2.6); Phosphorus 3.1 mg/dL (2.3-4.7); Potassium 4.1 mmol/L (3.5-5.1); Sodium 142 mmol/L (136-145)
[2022-10-25] MEDS: Acetaminophen 500 MG TAB PO SCH ×4 (06:47→23:48)
[2022-10-25] MEDS: traMADol HCl 50 MG TAB PO SCH ×5 (06:48→23:48)
[2022-10-25] MEDS ORDERED: PHOS-NAK 1 PKT PACK PO SCH (07:15)
[2022-10-25] MEDS: Polyethylene Glycol 3350 17 GM Packet PO SCH (09:20)
[2022-10-25] MEDS: Sertraline 100 MG TAB PO SCH (09:22)
[2022-10-25] MEDS: Gabapentin 100 MG CAP PO SCH ×2 (09:22→20:21)
[2022-10-25] MEDS: Ascorbic Acid 500 mg Chewable Tablet PO SCH ×2 (09:23→20:20)
[2022-10-25] MEDS: Senokot S 8.6-50 MG TAB PO SCH ×2 (09:23→20:20)
[2022-10-25] MEDS: Famotidine 20 MG TAB PO SCH (09:23)
[2022-10-25] MEDS: Ferrous Sulfate 325 MG TAB PO SCH ×2 (09:23→16:25)
[2022-10-25] MEDS: busPIRone HCl 10 MG TAB PO SCH ×3 (09:23→20:20)
[2022-10-25] MEDS: Fentanyl 100 MCG/2 ML VIAL SLOW IVP PRN (17:27)
[2022-10-25] MEDS: Aripiprazole 2 MG TAB PO SCH (20:20)
[2022-10-26 04:25] LABS: #Eosinphils 0.4 thou/uL (0.0-0.7); #Monocytes 0.4 thou/uL (0.11-0.59); #Neutrophils 4.6 thou/uL (1.40-6.50); %Basophils 0.3 % (0.0-1.0); %Eosinophils 6.5 % (0.0-10.0); %Lymphocytes 15.9 % (21.0-51.0); %Monocytes 6.2 % (0.0-10.0); %Neutrophils 71.2 % (42.0-75.0); Hemoglobin 8.5 g/dL (12.0-16.0); Mean Corpuscular Hemoglobin 31.8 pg (27.0-31.0); Mean Corpuscular Volume 96.2 fl (78.0-98.0); Mean Platelet Volume 7.7 fL (7.4-10.4); Platelet Count 121 10x3/uL (130-400); RBC Distribution Width 14.4 % (11.5-14.5); Red Blood Cell (RBC) Count 2.67 mill/uL (4.20-5.40); White Blood Cell (WBC) Count 6.5 10x3/uL (4.8-10.8)
[2022-10-26 04:44] LABS: Anion Gap 11 mmol/L (10-20); BUN (Urea Nitrogen) 13 mg/dL (9.8-20.1); Calc. Creatinine Clearance 100 mL/min (70-130); Calcium 8.2 mg/dL (7.8-10.44); Carbon Dioxide 28 mmol/L (23-31); Chloride 105 mmol/L (98-107); Estimated GFR 84; Glucose 92 mg/dL (83-110); Magnesium 2.1 mg/dL (1.6-2.6); Phosphorus 2.8 mg/dL (2.3-4.7); Potassium 4.2 mmol/L (3.5-5.1); Sodium 140 mmol/L (136-145)
[2022-10-26] MEDS: Acetaminophen 500 MG TAB PO SCH ×4 (05:55→23:18)
[2022-10-26] MEDS: traMADol HCl 50 MG TAB PO SCH ×4 (06:04→23:18)
[2022-10-26] MEDS: Famotidine 20 MG TAB PO SCH ×2 (09:12→20:56)
[2022-10-26] MEDS: Gabapentin 100 MG CAP PO SCH ×2 (09:12→20:55)
[2022-10-26] MEDS: busPIRone HCl 10 MG TAB PO SCH ×3 (09:12→20:55)
[2022-10-26] MEDS: Polyethylene Glycol 3350 17 GM Packet PO SCH (09:13)
[2022-10-26] MEDS: Ferrous Sulfate 325 MG TAB PO SCH ×2 (09:13→17:25)
[2022-10-26] MEDS: Senokot S 8.6-50 MG TAB PO SCH ×2 (09:13→20:54)
[2022-10-26] MEDS: Sertraline 100 MG TAB PO SCH (09:13)
[2022-10-26] MEDS: Ascorbic Acid 500 mg Chewable Tablet PO SCH ×2 (09:13→20:55)
[2022-10-26] MEDS ORDERED: Famotidine/PF 20 mg/2ml Vial ONE (13:38)
[2022-10-26] MEDS ORDERED: fentaNYL PF 100 MCG/2 ML SYRINGE ONE ×2 (13:38→13:52)
[2022-10-26] MEDS ORDERED: Sodium Chloride 0.9% 100 ML ONE (13:58)
[2022-10-26] MEDS ORDERED: CEFAZOLIN 2 GM VIAL ONE (13:58)
[2022-10-26] MEDS ORDERED: Lidocaine 1% PF 5 ML VIAL ONE (14:08)
[2022-10-26] MEDS ORDERED: Esmolol 100 MG/10 ML VIAL ONE ×2 (14:08→16:02)
[2022-10-26] MEDS ORDERED: Ondansetron PF 4 MG/2 ML Vial ONE (14:08)
[2022-10-26] MEDS ORDERED: PHENYLEPHRINE-NS 100 MCG/ML 10 ML SYRINGE ONE (14:08)
[2022-10-26] MEDS ORDERED: Metoprolol Tartrate 5 MG/5 ML VIAL ONE ×2 (14:08→16:10)
[2022-10-26] MEDS ORDERED: PROPOFOL 200 MG/20 ML VIAL ONE (14:08)
[2022-10-26] MEDS ORDERED: Metoclopramide HCl 10 MG/2 ML VIAL ONE (14:08)
[2022-10-26] MEDS ORDERED: Succinylcholine Chloride 100 MG/5 ML SYRINGE FS ONE (14:08)
[2022-10-26] MEDS ORDERED: Phenylephrine 10 MG/ML VIAL ONE (14:45)
[2022-10-26] MEDS ORDERED: Morphine 2 MG/ML VIAL SLOW IVP PRN (15:55)
[2022-10-26] MEDS ORDERED: HYDROcodone/Acetaminophen 10/325 mg Tablet PO PRN (15:55)
[2022-10-26] MEDS ORDERED: Communication Order-Pharmacy FS SCH (16:00)
[2022-10-26] MEDS ORDERED: Ipratropium/Albuterol 3 ML NEB ONE (16:01)
[2022-10-26] MEDS: Aspirin 81 mg Enteric Coated Tablet PO SCH (20:54)
[2022-10-26] MEDS: CEFAZOLIN 2 GM in Sodium Chloride 0.9% 100 ML IVPB SCH (21:00)
[2022-10-26] MEDS: Aripiprazole 2 MG TAB PO SCH (21:34)
[2022-10-27] MEDS: CEFAZOLIN 2 GM in Sodium Chloride 0.9% 100 ML IVPB SCH (05:48)
[2022-10-27] MEDS: Acetaminophen 500 MG TAB PO SCH (05:49)
[2022-10-27] MEDS: traMADol HCl 50 MG TAB PO SCH (05:49)
[2022-10-27 06:12] LABS: Hemoglobin 8.6 g/dL (12.0-16.0)
[2022-10-27] MEDS: Famotidine 20 MG TAB PO SCH ×2 (09:42→20:14)
[2022-10-27] MEDS: busPIRone HCl 10 MG TAB PO SCH ×3 (09:42→20:14)
[2022-10-27] MEDS: Polyethylene Glycol 3350 17 GM Packet PO SCH (09:43)
[2022-10-27] MEDS: Senokot S 8.6-50 MG TAB PO SCH ×2 (09:43→20:15)
[2022-10-27] MEDS: Ferrous Sulfate 325 MG TAB PO SCH ×2 (09:44→16:35)
[2022-10-27] MEDS: Ascorbic Acid 500 mg Chewable Tablet PO SCH ×2 (09:44→20:14)
[2022-10-27] MEDS: Gabapentin 100 MG CAP PO SCH ×2 (09:44→20:15)
[2022-10-27] MEDS: Aspirin 81 mg Enteric Coated Tablet PO SCH ×2 (09:44→20:14)
[2022-10-27] MEDS: Sertraline 100 MG TAB PO SCH (09:44)
[2022-10-27] MEDS: Acetaminophen/Codeine 30-300mg Tablet PO SCH ×2 (14:51→16:35)
[2022-10-27] MEDS: Acetaminophen 325 MG TAB PO SCH ×2 (14:57→18:29)
[2022-10-27] MEDS ORDERED: Calcium Chloride 1 GM/10 ML Abboject SYRINGE IVP SCH (19:15)
[2022-10-27 19:25] LABS: #Eosinphils 0.2 thou/uL (0.0-0.7); #Lymphocytes 0.7 thou/uL (1.20-3.40); #Monocytes 0.6 thou/uL (0.11-0.59); #Neutrophils 8.6 thou/uL (1.40-6.50); %Eosinophils 1.8 % (0.0-10.0); %Lymphocytes 7.1 % (21.0-51.0); %Neutrophils 85.1 % (42.0-75.0); Hemoglobin 8.2 g/dL (12.0-16.0); Mean Corpuscular HGB CONC 31.9 g/dL (32.0-36.0); Mean Corpuscular Hemoglobin 31.9 pg (27.0-31.0); Mean Platelet Volume 7.2 fL (7.4-10.4); Platelet Count 160 10x3/uL (130-400); RBC Distribution Width 15.6 % (11.5-14.5); Red Blood Cell (RBC) Count 2.57 mill/uL (4.20-5.40); White Blood Cell (WBC) Count 10.1 10x3/uL (4.8-10.8)
[2022-10-27] MEDS ORDERED: Hydrocortisone Sod Succ/PF 100 mg/2 ml Vial IVP SCH (19:45)
[2022-10-27 19:46] LABS: Anion Gap 11 mmol/L (10-20); BUN (Urea Nitrogen) 20 mg/dL (9.8-20.1); Calc. Creatinine Clearance 74 mL/min (70-130); Calcium 8.1 mg/dL (7.8-10.44); Carbon Dioxide 29 mmol/L (23-31); Chloride 104 mmol/L (98-107); Estimated GFR 63; Glucose 105 mg/dL (83-110); Magnesium 2.4 mg/dL (1.6-2.6); Phosphorus 3.4 mg/dL (2.3-4.7); Potassium 4.6 mmol/L (3.5-5.1); Sodium 139 mmol/L (136-145)
[2022-10-27] MEDS ORDERED: Digoxin 0.5 MG/2 ML AMP SLOW IVP SCH (20:00)
[2022-10-27] MEDS: Apixaban 5 MG TAB PO SCH (20:14)
[2022-10-27] MEDS: Aripiprazole 2 MG TAB PO SCH (20:14)
[2022-10-27 21:59] LABS: INR-International Normal Ratio 1.2; PTT 39.4 sec (22.9-36.1); Prothrombin Time 16.1 sec (12.0-14.7)
[2022-10-28] MEDS: Acetaminophen 325 MG TAB PO SCH ×5 (00:34→17:29)
[2022-10-28] MEDS ORDERED: Digoxin 0.5 MG/2 ML AMP SLOW IVP SCH ×2 (04:00→12:00)
[2022-10-28 05:55] LABS: Digoxin 3.36 ng/mL (0.8-2.0)
[2022-10-28] MEDS ORDERED: Hydrocortisone Sod Succ/PF 100 mg/2 ml Vial IVP SCH ×2 (06:00)
[2022-10-28] MEDS: Ipratropium/Albuterol 3 ML NEB NEB SCH ×2 (06:49→12:48)
[2022-10-28] MEDS: Aspirin 81 mg Enteric Coated Tablet PO SCH (07:37)
[2022-10-28] MEDS: Polyethylene Glycol 3350 17 GM Packet PO SCH (07:40)
[2022-10-28] MEDS: Apixaban 5 MG TAB PO SCH (07:41)
[2022-10-28] MEDS: busPIRone HCl 10 MG TAB PO SCH ×2 (07:41→15:50)
[2022-10-28] MEDS: Sertraline 100 MG TAB PO SCH (07:41)
[2022-10-28] MEDS: Gabapentin 100 MG CAP PO SCH (07:42)
[2022-10-28] MEDS: Famotidine 20 MG TAB PO SCH (07:54)
[2022-10-28] MEDS: Ascorbic Acid 500 mg Chewable Tablet PO SCH (07:56)
[2022-10-28] MEDS: Ferrous Sulfate 325 MG TAB PO SCH ×2 (07:56→17:29)
[2022-10-28] MEDS: Senokot S 8.6-50 MG TAB PO SCH (07:57)
[2022-10-28] MEDS ORDERED: Acetaminophen/Codeine 30-300mg Tablet PO PRN (08:55)
[2022-10-28] MEDS ORDERED: Furosemide 40 MG/4 ML VIAL SLOW IVP SCH (19:00)
[2022-10-28] MEDS ORDERED: Furosemide 20 MG/2 ML VIAL SLOW IVP SCH (19:00)
[2022-10-29] MEDS: Aripiprazole 2 MG TAB PO SCH (00:05)
[2022-10-29] MEDS: Melatonin 3 MG TAB PO SCH (00:05)
[2022-10-29] MEDS: Apixaban 5 MG TAB PO SCH ×2 (00:05→08:34)
[2022-10-29] MEDS: Senokot S 8.6-50 MG TAB PO SCH ×2 (00:06→08:34)
[2022-10-29] MEDS: Famotidine 20 MG TAB PO SCH ×2 (00:06→08:34)
[2022-10-29 06:20] LABS: Digoxin 1.02 ng/mL (0.8-2.0)
[2022-10-29] MEDS: Acetaminophen 325 MG TAB PO SCH ×3 (06:48→11:30)
[2022-10-29] MEDS: Ascorbic Acid 500 mg Chewable Tablet PO SCH ×2 (06:48→08:32)
[2022-10-29] MEDS: Ipratropium/Albuterol 3 ML NEB NEB SCH ×3 (06:48→12:29)
[2022-10-29] MEDS: busPIRone HCl 10 MG TAB PO SCH ×2 (06:48→08:33)
[2022-10-29] MEDS: Polyethylene Glycol 3350 17 GM Packet PO SCH (08:32)
[2022-10-29] MEDS: Ferrous Sulfate 325 MG TAB PO SCH (08:33)
[2022-10-29] MEDS: Sertraline 100 MG TAB PO SCH (08:33)
[2022-10-29] MEDS ORDERED: Aspirin 81 mg Enteric Coated Tablet PO SCH (09:00)
[2022-10-29 09:01] VITALS: TEMP 97.2
[2022-10-29] MEDS ORDERED: Metoprolol Tartrate 50 MG TAB PO SCH ×2 (09:45→21:00)
[2022-10-29 13:25] VITALS: BP 150/85
[2022-10-29] MEDS ORDERED: Bumetanide 1 MG TAB PO SCH (14:00)
[2022-10-30] MEDS ORDERED: Bumetanide 1 MG TAB PO SCH ×2 (09:00)
== END 2022-10-29 14:05 | DRG 481 ==
LOC: ERS 19:39 → IMCU/EMU 23:39 → SURG B 10-28 14:10
PROVIDERS: ADMIT Surgery; ATTEND Surgery
PROC: 30233N1 Transfusion of Nonautologous Red Blood Cells into Peripheral Vein, Percutaneous Approach (ICD-10-PCS; 2022-10-23)
PROC: 30233J1 Transfusion of Nonautologous Serum Albumin into Peripheral Vein, Percutaneous Approach (ICD-10-PCS; 2022-10-23)
PROC: 30283B1 Transfusion of Nonautologous 4-Factor Prothrombin Complex Concentrate into Vein, Percutaneous Approach (ICD-10-PCS; 2022-10-23)
PROC: 0QSC06Z Reposition Left Lower Femur with Intramedullary Internal Fixation Device, Open Approach (ICD-10-PCS; principal; 2022-10-26)
DX: S72.452A Displaced supracondylar fracture without intracondylar extension of lower end of left femur, initial encounter for closed fracture (principal); D62 Acute posthemorrhagic anemia; S82.101A Unspecified fracture of upper end of right tibia, initial encounter for closed fracture; E66.9 Obesity, unspecified; F41.9 Anxiety disorder, unspecified; F32.A Depression, unspecified; J44.9 Chronic obstructive pulmonary disease, unspecified; I12.9 Hypertensive chronic kidney disease with stage 1 through stage 4 chronic kidney disease, or unspecified chronic kidney disease; F03.90 Unspecified dementia, unspecified severity, without behavioral disturbance, psychotic disturbance, mood disturbance, and anxiety; I48.91 Unspecified atrial fibrillation; G89.11 Acute pain due to trauma; S82.401A Unspecified fracture of shaft of right fibula, initial encounter for closed fracture; I51.7 Cardiomegaly; W18.39XA Other fall on same level, initial encounter; N18.2 Chronic kidney disease, stage 2 (mild); Z99.3 Dependence on wheelchair; Z79.01 Long term (current) use of anticoagulants; Z90.49 Acquired absence of other specified parts of digestive tract; Z90.710 Acquired absence of both cervix and uterus; Z98.890 Other specified postprocedural states; Z79.899 Other long term (current) drug therapy; Z79.82 Long term (current) use of aspirin; Z87.891 Personal history of nicotine dependence; Z68.36 Body mass index [BMI] 36.0-36.9, adult; Z20.822 Contact with and (suspected) exposure to COVID-19
CPT/HCPCS: 29505; 36415; 36416; 36430; 36556; 51702; 70450; 71045; 76705; 80048; 80053; 80162; 81003; 81015; 82533; 82550; 83605; 83735; 83880; 84100; 84484; 85014; 85018; 85025; 85610; 85730; 86850; 86900; 86901; 87040; 93005; 93010; 94640; 96365; 96367; 96375; 97139; C1713; G0390; J0696; J1160; J1720; J1940; J2370; J2405; J2704; J2765; J3010; J3370-JW; J3480; J3490; J7050; J7168; J7620; P9016; P9045; S0028; U0002